=== PATIENT | male | born 1960 | race Caucasian/White ===

== ENCOUNTER 2020-05-09 10:21 | Emergency (ER) | payer MEDICAID ==
[~2020-05-09] VITALS: Ht 180.3 cm; Wt 140.6 kg
[~2020-05-09 10:21] MED LIST: AMLO10TA13 PO; LISI-648 PO; METF-370 PO
[2020-05-09 10:28] VITALS: BP 145/62
[2020-05-09] MEDS ORDERED: KETOROLAC TROMETH 60MG/2ML VIAL IM ONE (11:15)
== END 2020-05-09 11:41 | disposition home or self-care (01) ==
LOC: ER 10:21
DX: S46.912A Strain of unspecified muscle, fascia and tendon at shoulder and upper arm level, left arm, initial encounter (principal); M75.32 Calcific tendinitis of left shoulder; M19.012 Primary osteoarthritis, left shoulder; E11.9 Type 2 diabetes mellitus without complications; I10 Essential (primary) hypertension; Z87.891 Personal history of nicotine dependence; V28.4XXA Motorcycle driver injured in noncollision transport accident in traffic accident, initial encounter; Y93.89 Activity, other specified; Y99.8 Other external cause status; Y92.89 Other specified places as the place of occurrence of the external cause
CPT/HCPCS: 73030; 96372; 99283; J1885

== ENCOUNTER 2023-11-10 10:56 | Emergency (ER) | payer MEDICAID, OTHER ==
[~2023-11-10] VITALS: Ht 177.8 cm; Wt 131.0 kg
[~2023-11-10 10:56] MED LIST changes: -AMLO10TA13 PO; +AMLO1TAB23 PO; -LISI-648 PO; +LISI10TA34 PO
[2023-11-10] MEDS ORDERED: KETOROLAC TROMETH 30 MG/ML 1ML VIAL IM ONE (14:30)
[2023-11-10] MEDS: IBUPROFEN 600 MG TAB PO ONE ×2 (15:14→15:15)
[2023-11-10] MEDS ORDERED: MELO7.5T7 PO (15:30)
[2023-11-10 15:35] VITALS: BP 120/70; PULSE 71; RESP 19; TEMP 98.2; O2SAT 96
== END 2023-11-10 15:38 | disposition home or self-care (01) ==
LOC: ER 10:56
DX: M19.032 Primary osteoarthritis, left wrist (principal); I10 Essential (primary) hypertension; E11.9 Type 2 diabetes mellitus without complications; Z87.891 Personal history of nicotine dependence; Z79.899 Other long term (current) drug therapy
CPT/HCPCS: 73110; J1885